=== PATIENT | female | born 1950 | race Caucasian/White ===

== ENCOUNTER 2023-06-27 15:54 | Emergency (ER) | payer OTHER ==
[2023-06-27 16:23] VITALS: RESP 18; BMI 14.1
[2023-06-27] MEDS ORDERED: SODIUM CHLORIDE 0.9% 500 ML INFUS.BAG IV ONE (17:00)
[2023-06-27] MEDS ORDERED: ACETAMINOPHEN 1000 MG/100 ML BAG IVPB ONE (17:00)
[2023-06-27] MEDS ORDERED: ONDANSETRON 4 MG/2 ML VIAL IVPUSH ONE (17:00)
[2023-06-27] MEDS ORDERED: ONDANSETRON 4 MG/2 ML VIAL ONE (17:10)
[2023-06-27] MEDS ORDERED: ACETAMINOPHEN INJECTION 100 ML IVPB ONE (17:10)
[2023-06-27 17:42] LABS: BASO % 0.4 % (0-2.0); EOS % 0.4 % (0-4.5); HEMATOCRIT 34.1 % (32.4-45.2); HEMOGLOBIN 11.5 GM/dL (10.7-15.3); LYMPH % 4.3 % (8-40); MCH 29.1 pg (25.7-33.7); MCHC 33.7 g/dl (32.0-36.0); MEAN CELL VOLUME 86.5 fl (80-96); MONO % 14.2 % (3.8-10.2); NEUT % 80.7 % (42.8-82.8); PLATELET COUNT 358 10^3/uL (134-434); RBC 3.94 M/mm3 (3.60-5.2); RDW 14.7 % (11.6-15.6); WHITE BLOOD COUNT 11.4 K/mm3 (4.0-10.0)
[2023-06-27 17:46] LABS: INR 1.19 (0.83-1.09); PROTHROMBIN TIME (PATIENT) 13.8 SEC (9.7-13.0)
[2023-06-27 17:49] LABS: ACTIVATED PTT 34.6 SECONDS (25.2-36.5)
[2023-06-27 18:00] LABS: POTASSIUM 3.7 mmol/L (3.5-5.1)
[2023-06-27 18:02] LABS: ALBUMIN 3.5 g/dl (3.4-5.0); CALCIUM 8.9 mg/dL (8.5-10.1)
[2023-06-27 18:03] LABS: BLOOD UREA NITROGEN 15.6 mg/dL (7-18); MAGNESIUM 2.2 mg/dL (1.8-2.4)
[2023-06-27 18:05] LABS: CREATININE 0.4 mg/dL (0.55-1.3)
[2023-06-27 18:07] LABS: BILIRUBIN,TOTAL 0.5 mg/dL (0.2-1); TOT PROT 6.4 g/dl (6.4-8.2)
[2023-06-27 20:04] LABS: EPI CELLS 33 /uL (0-25.1); HYALINE CASTS 1 /uL (0-3.1); PH,URINE 6.5 (5.0-8.0); URINE APPEARANCE TURBID; URINE BILIRUBIN NEGATIVE (NEGATIVE); URINE COLOR DK YELLOW; URINE GLUCOSE (UA) NEGATIVE (NEGATIVE); URINE KETONE TRACE (NEGATIVE); URINE LEUK ESTERASE 3+ (NEGATIVE); URINE NITRITE NEGATIVE (NEGATIVE); URINE PROTEIN 1+ (NEGATIVE); URINE WBC 957 /uL (0-25.8)
[2023-06-27] MEDS ORDERED: CEFTRIAXONE 1,000 MG in DEXTROSE 5%-WATER - 50 ML IVPB ONE (20:39)
[2023-06-27] MEDS ORDERED: CEFTRIAXONE 1 GM/50 ML BAG ONE (20:43)
[2023-06-27] MEDS ORDERED: MINERAL OIL ENEMA 133 ML ENEMA RC ONE (20:49)
[2023-06-27 22:32] VITALS: BP 107/54; PULSE 70; TEMP 98.1
[2023-06-27 23:58] LABS: URINE BACTERIA 1013.6 /uL (0-1359); URINE CRYSTALS NONE SEEN /hpf; URINE RBC 1869.5 /uL (0-23.9)
== END 2023-06-28 00:30 | disposition home or self-care (01) ==
LOC: JER 15:54
PROC: 3E033GC Introduction of Other Therapeutic Substance into Peripheral Vein, Percutaneous Approach (ICD-10-PCS; principal; 2023-06-27)
PROC: 3E033NZ Introduction of Analgesics, Hypnotics, Sedatives into Peripheral Vein, Percutaneous Approach (ICD-10-PCS; 2023-06-27)
PROC: 3E033GC Introduction of Other Therapeutic Substance into Peripheral Vein, Percutaneous Approach (ICD-10-PCS; 2023-06-27)
DX: R11.2 Nausea with vomiting, unspecified (principal); K59.03 Drug induced constipation; N39.0 Urinary tract infection, site not specified; R30.0 Dysuria; R05.9 Cough, unspecified; Z20.822 Contact with and (suspected) exposure to COVID-19
CPT/HCPCS: 0241U-QW; 36415; 71046-TC-FY; 74177-TC; 80053; 81003; 83605; 83690; 83735; 84484; 85025; 85610; 85730; 86850; 86900; 86901; 87086; 87186; 93005; 93010; 96365; 96375; 99285-25; Q9967